=== PATIENT | female | born 1980 | race Caucasian/White ===

== ENCOUNTER 2016-12-29 11:08 | Emergency (ER) | payer BC, OTHER ==
[2016-12-29 12:13] VITALS: BP 93/60
--- NOTE | 2016-12-29 13:20 | UC ---
Respiratory Complaint HPI - HPI Summary HPI Summary: 36 year old patient presents complaining of fever, fatigue, and upper airway non productive cough. Symptoms presented 3-4 days ago, with a low grade temperature of 101F which is controlled with Ibuprofen use, symptoms began to improve today. Patient reports bronchospasm and slight SOB with exertion. - History of Current Complaint Chief Complaint: UCGeneralIllness Stated Complaint: FLU SYMPTOMS Time Seen by Provider: 12/29/16 12:25 Hx Obtained From: Patient Hx Last Menstrual Period: 12/14/16 ?: Yes Onset/Duration: Gradual Onset Severity Initially: Moderate Severity Currently: Mild Aggravating Factors: Exertion, Deep Breaths Associated Signs And Symptoms: Positive: Dyspnea, Fever, Wheezing, URI, Nasal Congestion. Negative: Chills, Pleuritic Chest Pain, Hemoptysis, Dizziness, Sinus Discomfort - Risk Factors Cardiac Risk Factors: Negative Pseudomonas Risk Factors: Negative Tuberculosis Risk Factors: Negative - Allergies/Home Medications Allergies/Adverse Reactions: Allergies Allergy/AdvReac Type Severity Reaction Status Date / Time No Known Allergies Allergy Verified 05/06/14 15:57 PMH/Surg Hx/FS Hx/Imm Hx Previously Healthy: Yes Endocrine History Of: Denies: Diabetes, Thyroid Disease Cardiovascular History Of: Denies: Cardiac Disorders, Hypertension Respiratory History Of: Denies: COPD, Asthma GI/ History Of: Denies: Ulcer Psychological History Of: Denies: Anxiety, Depression, Bipolar Disorder, Schizophrenia, Post Traumatic Stress Disorder - Surgical History Surgical History: Yes Surgery Procedure, Year, and Place: 3 c-sections - Family History Known Family History: Positive: None - Social History 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 Alcohol Use: Weekly Substance Use Type: None Smoking Status (MU): Never Smoked Tobacco - Immunization History Most Recent Influenza Vaccination: unknown Most Recent Tetanus Shot: unknown Most Recent Pneumonia Vaccination: none Review of Systems Constitutional: Fever, Fatigue Skin: Negative Eyes: Negative ENT: Nasal Discharge Respiratory: Shortness Of Breath, Cough - Upper airway Cardiovascular: Negative Gastrointestinal: Negative Genitourinary: Negative Motor: Negative Neurovascular: Negative Musculoskeletal: Negative Neurological: Negative Psychological: Negative All Other Systems Reviewed And Are Negative: Yes Physical Exam Triage Information Reviewed: Yes Appearance: Well-Appearing, No Pain Distress Vital Signs: Initial Vital Signs Temp 98.7 F 12/29/16 12:09 Pulse 67 02/02/17 12:09 Resp 16 12/29/16 12:09 BP 93/60 12/29/16 12:09 Pulse Ox 98 12/29/16 12:09 Vital Signs Reviewed: Yes Eye Exam: Normal Eyes: Positive: Conjunctiva Clear ENT: Positive: Hearing grossly normal, Pharynx normal, Nasal congestion, Nasal drainage, TMs normal Neck: Positive: Supple, Nontender, No Lymphadenopathy Respiratory: Positive: Chest non-tender, Lungs clear, Normal breath sounds, No respiratory distress, No accessory muscle use, Decreased breath sounds - Bilateral posterior lower lobes Cardiovascular: Positive: RRR, No Murmur, Pulses Normal, Brisk Capillary Refill Abdominal Exam: Normal Abdomen Description: Positive: Nontender, No Organomegaly, Soft Bowel Sounds: Positive: Present Musculoskeletal Exam: Normal Musculoskeletal: Positive: Strength Intact Neurological Exam: Normal Neurological: Positive: Alert Psychological Exam: Normal Skin Exam: Normal UC Diagnostic Evaluation - Laboratory O2 Sat by Pulse Oximetry: 98 Respiratory Course/Dx - Differential Dx/Diagnosis Provider Diagnoses: Influenza like illness. bronchospasm Discharge - Discharge Plan Condition: Stable Disposition: HOME Prescriptions: Albuterol HFA INHALER* [Ventolin HFA Inhaler*] 1 - 2 puff INH Q6H PRN #1 mdi PRN Reason: wheeze Benzonatate CAP* [Tessalon CAP*] 100 mg PO TID #20 cap Patient Education Materials: Upper Respiratory Infection (ED) Forms: *Work Release Referrals: Dana Hand MD [Primary Care Provider] - If Needed
== END 2016-12-29 13:26 | disposition home or self-care (01) ==
LOC: UCEAST 11:08
DX: J11.1 Influenza due to unidentified influenza virus with other respiratory manifestations (principal); J98.01 Acute bronchospasm
CPT/HCPCS: 99212; G0463